=== PATIENT | male | born 1945 | race Caucasian/White ===

== ENCOUNTER → 2021-03-02 | Outpatient (CLI) | payer OTHER ==
[~2021-03-02] MED LIST: ASPIRIN325 PO; ATENOLOL; BENAZEPRIL; COLACE100 MG PO; HYDROCHLOROTHIA25 M1 PO; HYDROCODONE-AP1 EAC6 PO; MOBIC15 MG PO; NEURONTIN 300300 M1 PO; OXYCODONE HCL 55 MG PO; TENORMIN100 MG PO; TRAMADOL 50 MG50 MG PO; XARELTO10 MG PO; [UNRECOGNIZED DRUG - OTHER]
--- NOTE | 2021-03-05 08:29 | PF ---
[address] [address] PULMONARY FUNCTION REPORT Name: RENNY BOWMANPATRIZIA Bueno Room: [facility]#: [id number] Admission: 03/02/21 Attend Phys: Rahul Tuttle MD, Discharge: Date of : 41 Report #: [id number] THIS REPORT FOR: cc: Rossana Berkowitz Anna S. DO Pervez, Adeel MD ~ DATE OF VISIT: 03/02/2021 PULMONARY FUNCTION TEST The FEV1/FVC ratio is decreased to 68% with an FVC normal at 86%. The FEV1 is also normal at 82%. The FEF 25-75 is below the limit of normal range at 65%. After the administration of a bronchodilator, there is no significant increase in any of these values. The patient's post-bronchodilator FEV1 is 2.26 liters. The flow volume loop is concave upwards. The total lung capacity is normal at 94%. The residual volume is normal at 105%. The DLCO as adjusted for hemoglobin is normal at 88%. IMPRESSION: 1. Mild obstruction without evidence of reversibility. 2. Normal lung volumes. 3. Normal DLCO. <ELECTRONICALLY SIGNED> By: Barrington Simon MD 03/05/21 [id number] Simon MD /nt
== END ==
LOC: M.PUL 02-22 09:49
PROVIDERS: ATTEND Internal Medicine
DX: R06.02 Shortness of breath (principal)